=== PATIENT | female | born 1955 | race Caucasian/White ===

== ENCOUNTER 2017-01-04 05:50 | Day surgery (SDC) | payer OTHER ==
[~2017-01-04 05:50] MED LIST: ADVAIR DISKU1 INH; CHLORTHALIDONE25 MG PO; CITALOPRAM HYDR40 MG PO; LOSARTAN POTAS100 MG PO; LOVASTATIN10 M1 PO; METFORMIN HCL500 MG PO; MULTIVITAMIN1 TAB PO
--- NOTE | 2017-01-04 07:57 | Provider's Discharge Care Plan ---
Problem, Goal, Plan Problem List 1. S/P colonoscopic polypectomy Goals: Screening Instructions: Follow up as directed, Take meds as directed, high fiber diet
--- NOTE | 2017-01-04 07:57 | Provider's Discharge Care Plan ---
Problem, Goal, Plan Problem List 1. S/P colonoscopic polypectomy Goals: Screening Instructions: Follow up as directed, Take meds as directed, high fiber diet
--- NOTE | 2017-01-04 08:24 | OPERATIVE REPORT ---
DATE OF SURGERY: 01/04/2017 SURGEON: Sharon Yu III, MD CYBER INCIDENT ANALYST: None. PREOPERATIVE DIAGNOSIS: 1. Screening colonoscopy POSTOPERATIVE DIAGNOSIS: 1. Colonoscopy with electrocautery snare polypectomy PROCEDURE PERFORMED: 1. Colonoscopy with electrocautery snare polypectomy ANESTHESIA: TIVA. INDICATIONS: The patient is a 61-year-old asymptomatic female who is scheduled for screening colonoscopy. SURGICAL FINDINGS: Normal-appearing cecum, ascending, transverse, and descending colon. The patient was noted to have scattered small mouthed sigmoid diverticulosis. The patient was noted to have a sessile polyp less than 1 cm in size of the sigmoid. The rectal vault appeared grossly normal. SURGICAL TECHNIQUE: The patient was brought to the operating room and placed in the left lateral decubitus position, where she was administered TIVA and monitored closely by anesthesia. After proper anesthesia had taken effect, a digital rectal examination revealed no masses or stenosis. This was followed by the passage of a fiberoptic video flexible Olympus colonoscope which, without difficulty, negotiated to the cecum. The cecum was identified by anatomical landmarks and anterior abdominal wall ballottement. On withdrawing the scope, the aforementioned findings noted. The polyp in question was identified, removed and retrieved using electrocautery snare. The scope was withdrawn, retroflexed, good view of the rectal vault obtained. No other pathology identified. The scope was completely withdrawn. The patient tolerated the procedure well and was transferred to the recovery room in stable condition. There were no intraoperative or anesthetic complications.
== END 2017-01-04 08:56 | disposition home or self-care (01) ==
LOC: OR SRH 05:50 → SCU SRH 06:02
PROVIDERS: Specialist
PROC: 0DBN8ZX Excision of Sigmoid Colon, Via Natural or Artificial Opening Endoscopic, Diagnostic (ICD-10-PCS; principal; 2017-01-04 07:30)
DX: Z12.11 Encounter for screening for malignant neoplasm of colon (principal); D12.5 Benign neoplasm of sigmoid colon; E11.9 Type 2 diabetes mellitus without complications; Z79.84 Long term (current) use of oral hypoglycemic drugs; Z72.0 Tobacco use; I10 Essential (primary) hypertension
CPT/HCPCS: 29229; 29240; 50004; 60001; 82900; 83526

== ENCOUNTER 2017-01-17 15:47 | Outpatient (CLI) | payer OTHER ==
--- NOTE | 2017-01-17 16:14 | DIAGNOSTIC IMAGING REPORT ---
PROCEDURE: XR CHEST 2 VIEW INDICATION: COPD TECHNIQUE: PA and lateral views. COMPARISON: Chest 10/14/14 FINDINGS: Hyperinflation but lungs are clear. Cardiovascular structures are normal. Mild to moderate degenerative changes of the spine. . IMPRESSION: 1. Hyperinflation but otherwise negative chest .
== END 2017-01-17 23:00 ==
LOC: XR SRH 15:47
DX: J44.9 Chronic obstructive pulmonary disease, unspecified (principal); E11.9 Type 2 diabetes mellitus without complications

== ENCOUNTER 2017-04-16 10:58 | Outpatient (CLI) | payer OTHER ==
--- NOTE | 2017-04-16 11:45 | DIAGNOSTIC IMAGING REPORT ---
PROCEDURE: CT THORAX WITHOUT CONTRAST INDICATION: COPD, PLEASE EVALUATE FOR PULMONARY NODULE TECHNIQUE: Noncontrast axial images were obtained of the chest with coronal and sagittal reformations. COMPARISON: Chest x-ray 01/17/1979 CT chest 06/23/2011. FINDINGS: There is a new 5 mm non solid nodule in the right major fissure. New 2 mm peripheral lateral right upper lobe (image 21), 2 mm superior segment right lower lobe (image 17), 6 mm right lower lobe (image 24), 6 mm right lower lobe (image 27) ( 3 mm x2 left upper lobe (image 12) and 2 mm left lower lobe (image 25) nodules. Moderate bullous emphysematous changes primarily in the upper lobes. No change in the mildly prominent superior mediastinal lymph node (8 mm). Moderate atherosclerosis of the aorta. Normal heart size. Moderate degenerative changes of the spine. IMPRESSION: 1. Moderate emphysema 2. Several new small bilateral pulmonary nodules, nonspecific. These may represent granulomas/inflammatory or neoplastic changes. Recommend follow-up CT scan in 6 months.
== END 2017-04-16 23:00 ==
LOC: CT SRH 10:58
DX: J43.9 Emphysema, unspecified (principal); R91.8 Other nonspecific abnormal finding of lung field